=== PATIENT | female | born 1955 | race American Indian/Alaskan Native ===

== ENCOUNTER 2017-08-21 11:30 | Outpatient (CLI) | payer OTHER ==
--- NOTE | 2017-08-21 13:38 | XRay Report ---
Left knee: Pain. Standing views obtained. There is good alignment. Periarticular spurs are identified both involving medial and lateral compartments. There is mild narrowing of the medial compartment but the articular surfaces appear smooth. Large periarticular spurs are identified at the superior patellofemoral articulation and there are probable mild subchondral erosions involving the medial posterior patella. There is no swelling and no effusion. Impression: Degenerative changes as detailed above.
== END 2017-08-21 11:31 | disposition home or self-care (01) ==
LOC: SPVIMAG 11:30
PROVIDERS: ATTEND Orthopaedic Surgery
DX: M17.12 Unilateral primary osteoarthritis, left knee (principal)